=== PATIENT | female | born 1955 | race Caucasian/White ===

== ENCOUNTER → 2017-09-01 | Emergency (ER) | payer OTHER ==
[~2017-09-01] VITALS: Ht 157.5 cm; Wt 55.8 kg
[~2017-09-01] MED LIST: AUGMENTIN; CALCIO; GLUCOSAMINE CHO1 CA2 PO; IBUPROFEN; [UNRECOGNIZED DRUG - MIXTURE]
== END | disposition home or self-care (01) ==
LOC: ER 22:06
DX: S02.2XXA Fracture of nasal bones, initial encounter for closed fracture (principal); W22.8XXA Striking against or struck by other objects, initial encounter; Y93.89 Activity, other specified; Y92.89 Other specified places as the place of occurrence of the external cause; Y99.8 Other external cause status

== ENCOUNTER 2020-05-12 18:23 | Outpatient (CLI) | payer OTHER | END 2020-05-13 08:27 | disposition home or self-care (01) | LOC: RAD 18:23 | DX: M79.602 Pain in left arm (principal) ==

== ENCOUNTER → 2020-08-04 | Outpatient (CLI) | payer OTHER | END | disposition home or self-care (01) | LOC: MAMO-SONO 14:30 → SONOGRAMA 14:34 | PROVIDERS: ATTEND Specialist | DX: N83.291 Other ovarian cyst, right side (principal); N83.01 Follicular cyst of right ovary; N83.02 Follicular cyst of left ovary ==

== ENCOUNTER 2024-03-01 06:45 | Day surgery (SDC) | payer OTHER ==
[~2024-03-01 06:45] MED LIST changes: +DORZOLAMIDE-TIM10 ML OPHT; +TOPROL XL25 M1 PO; +VYZULTA5 ML OPHT
[2024-03-01] MEDS ORDERED: CEFAZOLIN SODIUM 1,000 MG VIAL ONE (09:02)
[2024-03-01] MEDS ORDERED: POVIDONE-IODINE 118 ML BOTT TOP ONE (10:28)
[2024-03-01] MEDS ORDERED: TRAM1TAB98 PO (10:30)
[2024-03-01] MEDS ORDERED: LIDOCAINE HCL 1%/EPINEPHRINE 20ML VIAL IJ ONE (10:57)
[2024-03-01] MEDS ORDERED: HEMOSTATIC MATRIX 1 KIT KIT TOP ONE (11:52)
[2024-03-01] MEDS ORDERED: SURGIFLO APPLICATOR 1 EACH APPL TOP ONE (11:53)
[2024-03-01] MEDS ORDERED: MORPHINE SULFATE 4 MG/ML VIAL IV ONE (13:15)
== END 2024-03-01 15:45 | disposition home or self-care (01) ==
LOC: CIR.AMB 06:45
PROVIDERS: ATTEND Obstetrics & Gynecology
DX: D27.0 Benign neoplasm of right ovary (principal); D28.2 Benign neoplasm of uterine tubes and ligaments; K29.70 Gastritis, unspecified, without bleeding; I10 Essential (primary) hypertension; H40.9 Unspecified glaucoma